=== PATIENT | male | born 1970 | race Caucasian/White ===

== ENCOUNTER 2019-08-26 22:35 | Emergency (ER) | payer BC ==
--- NOTE | 2019-08-26 22:50 | EDM.PDOC ---
ED HPI GENERAL MEDICAL PROBLEM - General Chief Complaint: Genitourinary Problem Stated Complaint: KIDNEY STONE Time Seen by Provider: 08/26/19 22:55 Source of Information: Reports: Patient History Limitations: Reports: No Limitations - History of Present Illness INITIAL COMMENTS - FREE TEXT/NARRATIVE: Acute onset of right flank pain tonight at 8 pm. Pain waxes and wanes and is severe at times. He denies fever. He has a history of kidney stones. left flank Pain Score (Numeric/FACES): 4 - Related Data Allergies Allergy/AdvReac Type Severity Reaction Status Date / Time No Known Allergies Allergy Verified 08/26/19 23:10 Home Meds: Home Meds atorvaSTATin [Lipitor] 40 mg PO DAILY 08/26/19 [History] lisinopriL [Lisinopril] 10 mg PO DAILY 08/26/19 [History] ED ROS GENERAL - Review of Systems Review Of Systems: See Below Constitutional: Denies: Fever, Chills, Diaphoresis GI/Abdominal: Reports: Nausea, Vomiting ED EXAM, RENAL/ - Physical Exam Exam: See Below Exam Limited By: No Limitations General Appearance: Alert, WD/WN Respiratory/Chest: No Respiratory Distress, Lungs Clear Cardiovascular: Regular Rate, Rhythm Course - Vital Signs Text/Narrative:: He passed a kidney stone in the ED. He will follow up with his primary care provider as needed. Last Recorded V/S: Last Vital Signs Temp 35.8 C L 08/26/19 22:54 Pulse 54 L 08/26/19 22:54 Resp 16 08/26/19 22:54 BP 128/67 08/26/19 22:54 Pulse Ox 97 08/26/19 22:54 - Orders/Labs/Meds Labs: Laboratory Tests 08/26/19 Range/Units 22:58 Urine Color Yellow (YELLOW) Urine Appearance Cloudy A (CLEAR) Urine pH 5.5 (5.0-8.0) Ur Specific [place] >= 1.030 (1.008-1.030) Urine Protein Trace H (NEGATIVE) mg/dL Urine Glucose (UA) Negative (NEGATIVE) mg/dL Urine Ketones Negative (NEGATIVE) mg/dL Urine Occult Blood Large H (NEGATIVE) Urine Nitrite Negative (NEGATIVE) Urine Bilirubin Negative (NEGATIVE) Urine Urobilinogen 0.2 (0.2-1.0) EU/dL Ur Leukocyte Esterase Negative (NEGATIVE) Urine RBC Semi-packed H (0-5) Urine WBC 0-5 (0-5) Ur Epithelial Cells Rare Amorphous Sediment Not seen Urine Bacteria Rare Urine Mucus Many Departure - Departure Time of Disposition: 23:15 Disposition: Home, Self-Care 01 Condition: Good Clinical Impression: Kidney stone on right side - Discharge Information *PRESCRIPTION DRUG MONITORING PROGRAM REVIEWED*: No *COPY OF PRESCRIPTION DRUG MONITORING REPORT IN PATIENT KARL: No Instructions: Renal Colic, [id number] Referrals: PCP,None [Primary Care Provider] - Forms: ED Department Discharge Additional Instructions: Drink plenty of fluids. Follow up with your doctor as needed. Sepsis Event Note (ED) - Focused Exam Vital Signs: Vital Signs Temp Pulse Resp BP Pulse Ox 08/26/19 22:54 35.8 C L 54 L 16 128/67 97 08/26/19 22:49 35.8 C L 54 L 16 128/67 97
== END 2019-08-26 23:23 | disposition home or self-care (01) ==
LOC: JP.ED 22:35
DX: N20.0 Calculus of kidney (principal); Z79.899 Other long term (current) drug therapy
CPT/HCPCS: 81001; 99284